=== PATIENT | female | born 1930 | race Caucasian/White ===

== ENCOUNTER 2017-05-01 01:32 | Emergency (ER) | payer OTHER ==
[2017-05-01 01:44] VITALS: TEMP 98.3
[2017-05-01 02:50] VITALS: BP 130/67; PULSE 88; RESP 16; O2SAT 96
== END 2017-05-01 03:05 | disposition home health service (06) | DRG 605 ==
LOC: ED 01:32
DX: S50.02XA Contusion of left elbow, initial encounter (principal); W06.XXXA Fall from bed, initial encounter
CPT/HCPCS: 73070; 73090; 99282; 99283

== ENCOUNTER 2017-05-22 02:46 | Emergency (ER) | payer OTHER ==
[2017-05-22 02:54] VITALS: RESP 18; TEMP 98.2
[2017-05-22 03:56] VITALS: BP 138/81; PULSE 94; O2SAT 93
== END 2017-05-22 03:49 | DRG 605 ==
LOC: ED 02:46
DX: S00.83XA Contusion of other part of head, initial encounter (principal); W19.XXXA Unspecified fall, initial encounter
CPT/HCPCS: 99282; 99283

== ENCOUNTER 2017-08-11 13:09 | Inpatient (IN) | payer OTHER ==
[2017-08-11 13:32] LABS: BASOPHILS % (AUTO) 0 % (0-3); EOSINOPHILS % (AUTO) 0 % (0-9); HEMATOCRIT 46 % (35-47); MEAN CORPUSCULAR VOLUME 93 fL (81-99); MONOCYTES % (AUTO) 6.7 % (0-12); NEUTROPHILS % (AUTO) 77.8 % (37-80)
[2017-08-11] MEDS ORDERED: SODIUM CHLORIDE 0.9% 500 ML 500 ML IV ONE (13:40)
[2017-08-11 13:47] LABS: ALBUMIN 3.5 gm/dl (3.4-5.0); CALCIUM 9.8 mg/dl (8.5-10.1); POTASSIUM 3.4 mMol/L (3.5-5.1)
[2017-08-11] MEDS ORDERED: INSULIN HUMAN REGULAR 100 U/ML SOL IV ONE (13:55)
[2017-08-11] MEDS ORDERED: INSULIN HUMAN REGULAR U IV SCH (14:00)
[2017-08-11] MEDS ORDERED: INSULIN HUMAN REGULAR 100 U/ML SOL ONE ×2 (14:00→14:23)
[2017-08-11] MEDS ORDERED: SODIUM CHLORIDE 0.9% IV SCH (14:00)
[2017-08-11] MEDS ORDERED: DEXTROSE/SALINE 0.9% 1,000 ML with POTASSIUM CHLORIDE 2 MEQ/ML 20 MEQ IV SCH (14:00)
[2017-08-11] MEDS ORDERED: POTASSIUM CHLORIDE 2 MEQ/ML SOL IV ONE ×3 (14:14→21:50)
[2017-08-11] MEDS ORDERED: SODIUM CHLORIDE 0.9% 100 ML 100 ML IV ONE ×2 (15:00→20:16)
[2017-08-11] MEDS ORDERED: AMPICILLIN 1 GM PDS ONE ×2 (15:00→20:16)
[2017-08-11 15:02] LABS: MAGNESIUM 2.5 mg/dl (1.8-2.4)
[2017-08-11] MEDS: AMPICILLIN 1 GM PDS 1 GM in SODIUM CHLORIDE 0.9% 100 ML 100 ML IV SCH ×2 (15:21→20:29)
[2017-08-11 16:20] LABS: CALCIUM 9.5 mg/dl (8.5-10.1); POTASSIUM 2.6 mMol/L (3.5-5.1)
[2017-08-11] MEDS: POTASSIUM CHLORIDE 2 MEQ/ML 60 MEQ, LIDOCAINE HCL 1% MDV 2 ML in SODIUM CHLORIDE 0.9% 1... IV ONE ×2 (18:06→18:23)
[2017-08-11] MEDS: SODIUM CHLORIDE 0.9% IV ONE ×2 (18:08)
[2017-08-11] MEDS: POTASSIUM CHLORIDE IV ONE ×2 (18:08)
[2017-08-11] MEDS: SODIUM CHLORIDE 0.9% FLUSH 10 ML SOL IV SCH ×2 (18:11→23:19)
[2017-08-11 18:22] LABS: CALCIUM 9.5 mg/dl (8.5-10.1); POTASSIUM 2.6 mMol/L (3.5-5.1)
[2017-08-11 20:42] LABS: CALCIUM 9.4 mg/dl (8.5-10.1)
[2017-08-11 20:44] LABS: POTASSIUM 4.4 mMol/L (3.5-5.1)
[2017-08-11 21:21] LABS: CALCIUM 9.6 mg/dl (8.5-10.1); POTASSIUM 4.1 mMol/L (3.5-5.1)
[2017-08-11] MEDS ORDERED: SODIUM CHLORIDE 0.45% 1000 ML 1,000 ML with POTASSIUM CHLORIDE 2 MEQ/ML 20 MEQ IV ONE (21:39)
[2017-08-11] MEDS: NOVOLOG FLEXPEN SC SCH (21:46)
[2017-08-11] MEDS: SODIUM CHLORIDE 0.45% 1000 ML 1,000 ML with POTASSIUM CHLORIDE 2 MEQ/ML 20 MEQ IV SCH (21:59)
[2017-08-11] MEDS ORDERED: LORAZEPAM 2 MG/ML SOL IV ONE (23:02)
[2017-08-11] MEDS ORDERED: LORAZEPAM 2 MG/ML SOL ONE (23:15)
[2017-08-11 23:36] LABS: CALCIUM 9.3 mg/dl (8.5-10.1)
[2017-08-11 23:42] LABS: POTASSIUM 4.5 mMol/L (3.5-5.1)
[2017-08-12] MEDS ORDERED: POTASSIUM CHLORIDE 2 MEQ/ML SOL IV ONE ×2 (02:45→23:22)
[2017-08-12] MEDS: SODIUM CHLORIDE 0.45% 1000 ML 1,000 ML with POTASSIUM CHLORIDE 2 MEQ/ML 20 MEQ IV SCH ×2 (03:05→12:19)
[2017-08-12] MEDS: SODIUM CHLORIDE 0.9% FLUSH 10 ML SOL IV SCH ×4 (03:06→18:45)
[2017-08-12] MEDS ORDERED: AMPICILLIN 1 GM PDS ONE ×4 (03:47→20:14)
[2017-08-12] MEDS: AMPICILLIN 1 GM PDS 1 GM in SODIUM CHLORIDE 0.9% 100 ML 100 ML IV SCH ×3 (04:25→20:33)
[2017-08-12 07:16] LABS: CALCIUM 8.8 mg/dl (8.5-10.1); POTASSIUM 4.4 mMol/L (3.5-5.1)
[2017-08-12 07:18] LABS: BASOPHILS % (AUTO) 0 % (0-3); EOSINOPHILS % (AUTO) 0 % (0-9); HEMATOCRIT 40 % (35-47); MEAN CORPUSCULAR HGB CONC 34.3 gm/dl (32.0-36.0); MEAN CORPUSCULAR VOLUME 92 fL (81-99); MONOCYTES % (AUTO) 8.5 % (0-12); NEUTROPHILS % (AUTO) 66.6 % (37-80)
[2017-08-12 07:35] LABS: HEMOGLOBIN A1C 11.6 % (4.8-6.0)
[2017-08-12] MEDS ORDERED: DEXTROSE 1000 ML 1,000 ML IV ONE (08:23)
[2017-08-12] MEDS ORDERED: ENOXAPARIN 30 MG SOL SC SCH (09:00)
[2017-08-12] MEDS ORDERED: NOVOLOG 70/30 FLEXPEN SC SCH ×2 (09:00→19:18)
[2017-08-12] MEDS ORDERED: ENOXAPARIN 40 MG SOL SC SCH (09:00)
[2017-08-12] MEDS: NOVOLOG FLEXPEN SC SCH ×5 (09:12→23:50)
[2017-08-12] MEDS: NOVOLOG 70/30 FLEXPEN SC SCH ×2 (09:15→17:28)
[2017-08-12 09:45] LABS: CALCIUM 8.8 mg/dl (8.5-10.1); POTASSIUM 3.9 mMol/L (3.5-5.1)
[2017-08-12 13:11] LABS: CALCIUM 8.5 mg/dl (8.5-10.1); POTASSIUM 3.6 mMol/L (3.5-5.1)
[2017-08-12] MEDS ORDERED: SODIUM CHLORIDE 0.9% 100 ML 100 ML IV ONE ×3 (13:12→20:15)
[2017-08-12] MEDS: DEXTROSE 1000 ML 1,000 ML IV SCH ×4 (13:22→22:55)
[2017-08-12] MEDS: NOVOLOG FLEXPEN SC PRN (14:23)
[2017-08-12 17:11] LABS: CALCIUM 8.4 mg/dl (8.5-10.1); POTASSIUM 3.4 mMol/L (3.5-5.1)
[2017-08-12] MEDS ORDERED: POTASSIUM CHLORIDE 2 MEQ/ML SOL IV SCH (19:30)
[2017-08-12 21:14] LABS: CALCIUM 8.3 mg/dl (8.5-10.1); POTASSIUM 3.3 mMol/L (3.5-5.1)
[2017-08-12] MEDS ORDERED: POTASSIUM CHLORIDE 2 MEQ/ML 40 MEQ, LIDOCAINE HCL 1% MDV 2 ML in SODIUM CHLORIDE 0.9% 5... IV ONE (23:01)
[2017-08-13] MEDS: SODIUM CHLORIDE 0.9% FLUSH 10 ML SOL IV SCH ×3 (01:51→19:53)
[2017-08-13] MEDS: AMPICILLIN 1 GM PDS 1 GM in SODIUM CHLORIDE 0.9% 100 ML 100 ML IV SCH ×3 (04:54→21:33)
[2017-08-13] MEDS: NOVOLOG FLEXPEN SC SCH ×7 (04:55→23:31)
[2017-08-13] MEDS: DEXTROSE 1000 ML 1,000 ML IV SCH (04:58)
[2017-08-13 07:14] LABS: CALCIUM 8.1 mg/dl (8.5-10.1); POTASSIUM 3.8 mMol/L (3.5-5.1)
[2017-08-13 07:19] LABS: BASOPHILS % (AUTO) 1 % (0-3); EOSINOPHILS % (AUTO) 2 % (0-9); HEMATOCRIT 33 % (35-47); MEAN CORPUSCULAR HGB CONC 33.8 gm/dl (32.0-36.0); MEAN CORPUSCULAR VOLUME 93 fL (81-99); MONOCYTES % (AUTO) 5.3 % (0-12); NEUTROPHILS % (AUTO) 63.1 % (37-80)
[2017-08-13] MEDS ORDERED: NOVOLOG 70/30 FLEXPEN SC SCH (07:24)
[2017-08-13] MEDS ORDERED: DEXTROSE 1000 ML 1,000 ML IV SCH ×2 (07:59→14:25)
[2017-08-13] MEDS: METOPROLOL SUCCINATE 50 MG ER TAB PO SCH (09:40)
[2017-08-13] MEDS ORDERED: SODIUM CHLORIDE 0.9% 100 ML 100 ML IV ONE ×2 (12:56→21:25)
[2017-08-13] MEDS ORDERED: AMPICILLIN 1 GM PDS ONE ×2 (12:56→21:25)
[2017-08-13 15:29] LABS: CALCIUM 7.8 mg/dl (8.5-10.1); POTASSIUM 3.6 mMol/L (3.5-5.1)
[2017-08-13] MEDS: NOVOLOG 70/30 FLEXPEN SC SCH (17:27)
[2017-08-14] MEDS: NOVOLOG FLEXPEN SC SCH ×5 (04:12→20:02)
[2017-08-14] MEDS ORDERED: SODIUM CHLORIDE 0.9% 100 ML 100 ML IV ONE (05:02)
[2017-08-14] MEDS ORDERED: AMPICILLIN 1 GM PDS ONE (05:02)
[2017-08-14] MEDS: AMPICILLIN 1 GM PDS 1 GM in SODIUM CHLORIDE 0.9% 100 ML 100 ML IV SCH (05:11)
[2017-08-14] MEDS: SODIUM CHLORIDE 0.9% FLUSH 10 ML SOL IV SCH ×3 (05:11→17:23)
[2017-08-14 07:05] LABS: CALCIUM 7.9 mg/dl (8.5-10.1); POTASSIUM 3.6 mMol/L (3.5-5.1)
[2017-08-14 07:21] LABS: BASOPHILS % (AUTO) 1 % (0-3); EOSINOPHILS % (AUTO) 2 % (0-9); HEMATOCRIT 34 % (35-47); MEAN CORPUSCULAR HGB CONC 34.5 gm/dl (32.0-36.0); MEAN CORPUSCULAR VOLUME 91 fL (81-99); MONOCYTES % (AUTO) 5.5 % (0-12); NEUTROPHILS % (AUTO) 66.1 % (37-80)
[2017-08-14] MEDS ORDERED: DEXTROSE 500 ML 500 ML IV SCH (08:45)
[2017-08-14] MEDS ORDERED: DEXTROSE 1000 ML 1,000 ML IV ONE (09:30)
[2017-08-14] MEDS: AMOXICILLIN 125/5 ML BOTTLE PO SCH ×2 (09:33→17:21)
[2017-08-14] MEDS: NOVOLOG 70/30 FLEXPEN SC SCH ×2 (09:33→17:19)
[2017-08-14] MEDS: METOPROLOL SUCCINATE 50 MG ER TAB PO SCH (10:00)
[2017-08-14] MEDS ORDERED: NOVOLOG FLEXPEN SC ONE (15:36)
[2017-08-14] MEDS: NOVOLOG FLEXPEN SC PRN ×2 (17:39→22:00)
[2017-08-14] MEDS ORDERED: DEXTROSE 1000 ML 1,000 ML IV SCH (18:15)
[2017-08-14] MEDS ORDERED: SODIUM CHLORIDE 0.45% 1000 ML 1,000 ML IV SCH (20:00)
[2017-08-15] MEDS: NOVOLOG FLEXPEN SC SCH ×3 (00:28→08:49)
[2017-08-15] MEDS: AMOXICILLIN 125/5 ML BOTTLE PO SCH ×2 (00:30→08:44)
[2017-08-15] MEDS: SODIUM CHLORIDE 0.9% FLUSH 10 ML SOL IV SCH ×2 (02:19→09:25)
[2017-08-15 07:34] LABS: CALCIUM 7.9 mg/dl (8.5-10.1); POTASSIUM 3.4 mMol/L (3.5-5.1)
[2017-08-15] MEDS: METOPROLOL SUCCINATE 50 MG ER TAB PO SCH (08:43)
[2017-08-15] MEDS ORDERED: NOVOLOG 70/30 FLEXPEN SC SCH (09:00)
[2017-08-15 09:06] VITALS: BP 105/60; PULSE 84; RESP 24; TEMP 97.8; O2SAT 95
[2017-08-15] MEDS ORDERED: INFLUENZA HIGH DOSE VACCINE 0.5 ML SUS IM ONE (09:34)
== END 2017-08-15 10:05 | DRG 638 ==
LOC: ED 13:09 → ACUTE CARE 14:50 → UNDOADMIN 14:50 → ACUTE CARE 14:55
PROVIDERS: ADMIT Family Medicine; ATTEND Family Medicine
DX: E13.11 Other specified diabetes mellitus with ketoacidosis with coma (principal); N39.0 Urinary tract infection, site not specified; E11.65 Type 2 diabetes mellitus with hyperglycemia; E87.0 Hyperosmolality and hypernatremia; N30.00 Acute cystitis without hematuria; Z79.4 Long term (current) use of insulin; E87.6 Hypokalemia; E86.0 Dehydration; R41.0 Disorientation, unspecified
CPT/HCPCS: 36415; 80048; 80053; 82962; 83036; 83735; 83880; 84100; 85025; 87040; 90662; 93005; 93012; 96365; 96374; 99070; 99285; 99291; J0290; J1650; J1815; J2060; J3480; G0008